=== PATIENT | male | born 1960 | race Caucasian/White ===

== ENCOUNTER 2017-05-31 21:33 | Emergency (ER) | payer SELFPAY ==
[~2017-05-31] VITALS: Ht 188 cm; Wt 80.0 kg
[2017-05-31 21:45] VITALS: BP 118/71; PULSE 112; RESP 20; TEMP 98.4; O2SAT 97
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
[2017-05-31] MEDS ORDERED: SODIUM CHLORIDE 0.9% FLUSH 5 ML FLUSH IV FLUSH PRN (22:00)
== END 2017-06-01 04:12 | disposition home or self-care (01) ==
LOC: NEPC 21:33
DX: F10.129 Alcohol abuse with intoxication, unspecified (principal)
CPT/HCPCS: 99283